=== PATIENT | female | born 2000 | race Caucasian/White ===

== ENCOUNTER 2022-11-12 02:26 | Emergency (ER) | payer OTHER ==
[~2022-11-12] VITALS: Ht 165.1 cm; Wt 61.7 kg
[2022-11-12 02:34] VITALS: BP 120/73
--- NOTE | 2022-11-12 04:31 | NUR ---
Patient taken to bed 7.
--- NOTE | 2022-11-12 04:40 | NUR ---
22 Y/O F presents with NVD x2days, headache intermittent xdays, and pt stated abdominal pain 10/10 due to a possible tampon being stuck inside of pt vagina. pt stated "i couldnt remember if i already had one inside when i was trying to insert another one x5 days ago." pt stated the pain feels like pressure all over and she is scared to go to sleep. pt is A&Ox4, skin intact, respirations even and unlabored. PMH-pt denies NKA
--- NOTE | 2022-11-12 04:50 | NUR ---
pt ambulated to restroom x2 without assistance
--- NOTE | 2022-11-12 05:00 | NUR ---
pelvic exam completed by Dr. Elias and Isabel GALLEGO asissting.
[2022-11-12 05:35] LABS: APPEARANCE,URINE CLEAR (CLEAR); BILIRUBIN,URINE NEGATIVE (NEGATIVE); BLOOD, URINE 3+ (NEGATIVE); COLOR,URINE YELLOW (YELLOW); LEUKOCYTE ESTERASE ,URINE NEGATIVE (NEGATIVE); NITRITE, URINE NEGATIVE (NEGATIVE); UGLUCOSE NEGATIVE (NEGATIVE)
[2022-11-12] MEDS: NACL 0.9% 1,000 ML IV ONE (05:40)
[2022-11-12 05:41] LABS: RBC,URINE 0-5 /HPF (0-5); WBC,URINE 0-5 /HPF (0-5)
[2022-11-12] MEDS: ONDANSETRON 4 MG/2 ML VIAL IVP ONE (05:42)
[2022-11-12 05:43] LABS: BASOPHILS % (AUTO) 0.1 % (0.0-2.0); EOSINOPHILS % (AUTO) 0.5 % (0.0-4.0); HEMATOCRIT 44.1 % (36-48); HEMOGLOBIN 14.7 g/dL (12.0-16.0); LYMPHOCYTES # (AUTO) 0.5 K/uL (2.5-16.5); LYMPHOCYTES % (AUTO) 6.7 % (20.5-51.1); MEAN CORPUSCULAR HEMOGLOBIN 28 pg (27-31); MEAN CORPUSCULAR HGB CONC 33 g/dL (33-37); MEAN CORPUSCULAR VOLUME 84.9 fL (80-94); MONOCYTES # (AUTO) 0.5 K/uL (0.8-1.0); MONOCYTES % (AUTO) 7.2 % (1.7-9.3); NEUTROPHILS # (AUTO) 6.2 K/uL (1.8-7.7); NEUTROPHILS % (AUTO) 85.5 % (42.2-75.2); PLATELET COUNT (AUTO) 151 K/uL (140-450); RED BLOOD CELL COUNT(AUTO) 5.19 MIL/uL (4.20-5.40); RED CELL DISTRIBUTION WIDTH 13.4 % (11.6-13.7); WHITE BLOOD COUNT (AUTO) 7.2 K/uL (4.5-11.0)
[2022-11-12] MEDS: KETOROLAC 15 MG/ML VIAL IVP ONE (05:45)
--- NOTE | 2022-11-12 05:50 | NUR ---
PT TO CT VIA ENDER
[2022-11-12 05:59] LABS: ALBUMIN 3.9 g/dL (3.4-5.0); CARBON DIOXIDE 25.8 mmol/L (21-32); CREATININE 0.6 mg/dL (0.6-1.3); POTASSIUM 4.8 mmol/L (3.5-5.1); TOTAL BILIRUBIN 0.8 mg/dL (0.0-1.0)
[2022-11-12] MEDS ORDERED: CEPH-588 PO (07:08)
[2022-11-12] MEDS ORDERED: ONDA-188 PO (07:08)
--- NOTE | 2022-11-12 07:15 | NUR ---
Patient discharged with v/s stable. Written and verbal after care instructions given and explained. Patient alert, oriented and verbalized understanding of instructions. Ambulatory with steady gait. All questions addressed prior to discharge. ID band removed. Patient advised to follow up with PMD. Rx of Doxycycline given. Opportunity to ask questions provided and answered.
[2022-11-12 08:00] VITALS: BP 124/77
== END 2022-11-12 02:34 | disposition home or self-care (01) ==
LOC: MED 02:26
DX: R11.2 Nausea with vomiting, unspecified (principal); N39.0 Urinary tract infection, site not specified; Z86.69 Personal history of other diseases of the nervous system and sense organs; Z79.899 Other long term (current) drug therapy; Z79.2 Long term (current) use of antibiotics
CPT/HCPCS: 36415; 74176; 80053; 81001; 81025; 83690; 85025; 87086; 96361; 96374; 96375; 99285; J1885; J2405; J7030